=== PATIENT | male | born 1990 | race Caucasian/White ===

== ENCOUNTER 2018-06-29 13:06 | Emergency (ER) | payer OTHER ==
--- NOTE | 2018-06-29 13:08 | EDM.PDOC ---
ED HPI GENERAL MEDICAL PROBLEM - General Stated Complaint: COLD, HEADACHE AND BODYACHES Time Seen by Provider: 06/29/18 13:08 Source of Information: Reports: Patient History Limitations: Reports: No Limitations - History of Present Illness INITIAL COMMENTS - FREE TEXT/NARRATIVE: HISTORY AND PHYSICAL: History of present illness: Patient is a 27-year-old male who presents to the emergency room today with his significant other with concerns of coughing, fever, chills and generally feeling unwell. He states he has had the symptoms over the past 4 days which became worse last night. He states that his significant other woke him up as he was sweating. She felt his forehead and felt that he was warm to the touch. Denies any chest pain, shortness of breath, abdominal pain, nausea, vomiting, diarrhea or constipation. Patient denies any headache, change in vision, syncope or near syncope. No recent chemical exposures. Patient is a daily smoker. Review of systems: As per history of present illness and below otherwise all systems reviewed and negative. Past medical history: As per history of present illness and as reviewed below otherwise noncontributory. Surgical history: As per history of present illness and as reviewed below otherwise noncontributory. Social history: No reported history of drug or alcohol abuse. Family history: As per history of present illness and as reviewed below otherwise noncontributory. Physical exam: General: Developed and well-nourished 27-year-old male. Alert and oriented. Nontoxic appearing and in no acute distress. HEENT: Atraumatic, normocephalic, pupils equal and reactive bilaterally, negative for conjunctival pallor or scleral icterus, mucous membranes moist, throat clear, neck supple, nontender, trachea midline. No drooling or trismus noted. No meningeal signs Lungs: Diminished throughout, otherwise clear to auscultation, breath sounds equal bilaterally, chest nontender. Dry nonproductive cough noted. Heart: S1S2, regular rate and rhythm without overt murmur Abdomen: Soft, nondistended, nontender. Negative for masses or hepatosplenomegaly. Negative for costovertebral tenderness. Pelvis: Stable nontender. Genitourinary: Deferred. Rectal: Deferred. Skin: Intact, warm, dry. No lesions or rashes noted. Extremities: Atraumatic, negative for cords or calf pain. Neurovascular unremarkable. Neuro: Awake, alert, oriented. Cranial nerves II through XII unremarkable. Cerebellum unremarkable. Motor and sensory unremarkable throughout. Exam nonfocal. Notes: Lab work is unremarkable. Chest x-ray shows no evidence of pneumonia. Patient is a smoker. I did advise him to quit smoking. We'll give him Medrol Dosepak and Ventolin inhaler. Denies any further questions or concerns at this time. Diagnostics: CBC, BMP, CXR Therapeutics: None Prescription: Medrol Dose Francisco Ventolin PRN Impression: Viral Upper Respiratory Illness Plan: 1. Please stop smoking 2. To give medications as directed. Tylenol and/or ibuprofen as needed for pain and fever management. 3. Follow-up with your primary caregiver in the next 1-2 days. Return to the ED as needed and as discussed. Definitive disposition and diagnosis as appropriate pending reevaluation and review of above. - Related Data Allergies Allergy/AdvReac Type Severity Reaction Status Date / Time oxycodone [Oxycodone] Allergy Nausea and Verified 06/29/18 13:18 Vomiting Home Meds: Home Meds . [No Known Home Meds] 06/29/18 [History] Past Medical History - Past Health History Medical/Surgical History: Denies Medical/Surgical History ED ROS GENERAL - Review of Systems Review Of Systems: ROS reveals no pertinent complaints other than HPI. ED EXAM, GENERAL - Physical Exam Exam: See Below (See dictation) Course - Vital Signs Last Recorded V/S: Last Vital Signs Temp 97.3 F 06/29/18 13:19 Pulse 62 06/29/18 13:19 Resp 14 06/29/18 13:19 BP 118/63 06/29/18 13:19 Pulse Ox 97 06/29/18 13:19 - Orders/Labs/Meds Orders: Active Orders 24 hr Category Date Time Status BMP [BASIC METABOLIC PANEL,BMP] [CHEM] Stat Lab 06/29/18 13:32 Ordered Labs: Laboratory Tests 06/29/18 Range/Units 13:47 WBC 8.44 (4.0-11.0) K/uL RBC 4.87 (4.50-5.90) M/uL Hgb 15.5 (13.0-17.0) g/dL Hct 45.0 (38.0-50.0) % MCV 92.4 (80.0-98.0) fL MCH 31.8 (27.0-32.0) pg MCHC 34.4 (31.0-37.0) g/dL RDW Std Deviation 46.6 (28.0-62.0) fl RDW Coeff of Stephen 14 (11.0-15.0) % Plt Count 197 (150-400) K/uL MPV 9.50 (7.40-12.00) fL Neut % (Auto) 60.7 (48.0-80.0) % Lymph % (Auto) 27.1 (16.0-40.0) % Greenlee % (Auto) 9.4 (0.0-15.0) % Eos % (Auto) 2.4 (0.0-7.0) % Baso % (Auto) 0.4 (0.0-1.5) % Neut # (Auto) 5.1 (1.4-5.7) K/uL Lymph # (Auto) 2.3 (0.6-2.4) K/uL Greenlee # (Auto) 0.8 (0.0-0.8) K/uL Eos # (Auto) 0.2 (0.0-0.7) K/uL Baso # (Auto) 0.0 (0.0-0.1) K/uL Nucleated RBC % 0.0 /100WBC Nucleated RBCs # 0 K/uL Departure - Departure Time of Disposition: 14:12 Disposition: Home, Self-Care 01 Clinical Impression: Viral upper respiratory illness - Discharge Information Instructions: Viral Respiratory Infection, Owma-Ro-Noux Referrals: PCP,None [Primary Care Provider] - Additional Instructions: The following information is given to patients seen in the emergency department who are being discharged to home. This information is to outline your options for follow-up care. We provide all patients seen in our emergency department with a follow-up referral. The need for follow-up, as well as the timing and circumstances, are variable depending upon the specifics of your emergency department visit. If you don't have a primary care physician on staff, we will provide you with a referral. We always advise you to contact your personal physician following an emergency department visit to inform them of the circumstance of the visit and for follow-up with them and/or the need for any referrals to a consulting specialist. The emergency department will also refer you to a specialist when appropriate. This referral assures that you have the opportunity for follow-up care with a specialist. All of these measure are taken in an effort to provide you with optimal care, which includes your follow-up. Under all circumstances we always encourage you to contact your private physician who remains a resource for coordinating your care. When calling for follow-up care, please make the office aware that this follow-up is from your recent emergency room visit. If for any reason you are refused follow-up, please contact the [facility] Emergency Department at and asked to speak to the emergency department charge nurse. [facility] [address] [place] [id number] 1. Please stop smoking 2. To give medications as directed. Tylenol and/or ibuprofen as needed for pain and fever management. 3. Follow-up with your primary caregiver in the next 1-2 days. Return to the ED as needed and as discussed. - My Orders Last 24 Hours: My Active Orders 06/29/18 13:32 BMP [BASIC METABOLIC PANEL,BMP] [CHEM] Stat - Assessment/Plan Last 24 Hours: My Active Orders 06/29/18 13:32 BMP [BASIC METABOLIC PANEL,BMP] [CHEM] Stat
--- NOTE | 2018-06-29 14:10 | CR ---
EXAMINATION: Two-view chest (PA and Lateral views). HISTORY: Shortness of breath. FINDINGS: The trachea is midline. The cardiomediastinal silhouette is within normal limits. No pulmonary infilt rates, effusions or pneumothorax. Osseous structures appear unremarkable. IMPRESSION: No acute cardiopulmonary process.
[2018-06-29 14:18] LABS: CHLORIDE,CL 104 mmol/L (98-107); SODIUM,NA 140 mmol/L (136-148)
== END 2018-06-29 14:39 | disposition home or self-care (01) ==
LOC: MW.ED 13:06
DX: J06.9 Acute upper respiratory infection, unspecified (principal); Z88.6 Allergy status to analgesic agent; F17.210 Nicotine dependence, cigarettes, uncomplicated
CPT/HCPCS: 36415; 71046; 71046-26; 80048; 85025; 99283

== ENCOUNTER 2019-12-20 10:10 | Emergency (ER) | payer BC, OTHER ==
--- NOTE | 2019-12-20 10:37 | EDM.PDOC ---
ED HPI GENERAL MEDICAL PROBLEM - General Chief Complaint: Abdominal Pain Stated Complaint: BLOATING Time Seen by Provider: 12/20/19 10:11 Source of Information: Reports: Patient History Limitations: Reports: No Limitations - History of Present Illness INITIAL COMMENTS - FREE TEXT/NARRATIVE: HISTORY OF PRESENT ILLNESS: Patient is a 29-year-old male who presents with abdominal pain. States he had the pain initially on Monday which resolved for a few days and now returned since 11 PM last night. Pain is described as bloating diffuse maximal in the left upper quadrant. Denies any nausea or vomiting. No diarrhea or constipation. No melena or hematochezia. Denies any urinary symptoms. No history of sexually transmitted disease. Denies any chest pain or dyspnea. No fever neck stiffness or rash. Is 7 out of 10 in severity and now constant since last night. Denies prior abdominal surgeries. REVIEW OF SYSTEMS: Other than the symptoms associated with the present events, the following is reported with regard to recent health: General: (-) fever. HENT: (-) congestion. Respiratory: (-) cough. Cardiovascular: (-) chest pain. GI: (+) abdominal pain. : (-) urinary complaints. Musculoskeletal: (-) other aches or pains. Endocrine: (-) generalized weakness. Neurological: (-) localized weakness. Skin: (-) rash PAST MEDICAL HISTORY: reviewed as per nursing notes SOCIAL HISTORY: reviewed as per nursing notes, MEDICATIONS: Per nurse's note ALLERGIES: Per nurse's note, reviewed by me PHYSICAL EXAMINATION: GENERALIZED APPEARANCE: well developed, well nourished in mild distress VITAL SIGNS: Per nurse's note, reviewed by me SKIN: Warm, dry; (-) cyanosis; (-) rash. HEAD: (-) scalp swelling, (-) tenderness. EYES: (-) conjunctival pallor, (-) scleral icterus. ENMT: (-) stridor; mucous membranes moist. NECK: (-) tenderness, (-) stiffness, CHEST AND RESPIRATORY: (-) rales, (-) rhonchi, (-) wheezes; breath sounds equal bilaterally. HEART AND CARDIOVASCULAR: (-) irregularity; (-) murmur, (-) gallop. ABDOMEN AND GI: Soft; (+) diffuse mild tenderness, maximal in LUQ (-) guarding , (-) rebound, (-) palpable masses, EXTREMITIES: (-) deformity, (-) edema. NEURO AND PSYCH: Alert. Cranial nerves grossly intact; strength symmetric. gait steady DIAGNOSTICS: Labs ordered and reviewed CT abd/pelvis: as read by radiologist, report reviewed by myself EMERGENCY DEPARTMENT COURSE AND TREATMENT: Patient's condition remained stable during Emergency Department evaluation. Patient offered pain medication but refusing at this time. Labs reviewed. CT abdomen pelvis with possible ileus versus partial small bowel obstruction cannot exclude without p.o. contrast. Therefore decision made to order CT abdomen pelvis with p.o. contrast. I discussed this with the patient. He is already pulled out his IV and is refusing to stay longer states he needs to be at work in the next 20 minutes. The patient declines further evaluation and wishes to leave the Emergency Department. This action is against my medical advice to the patient and the decision was made with informed refusal. The patient was told that repeat CT and further evaluation is necessary and a full explanation of the rationale was given. The risks of leaving were explained to the patient and include, but are not limited to, worsening of known or currently unknown conditions, permanent disability and from undiagnosed or untreated conditions. The patient has the capacity to make this informed decision and understands the clinical situation and my explanation of the risks of leaving. The patient voluntarily accepts these risks and a signed AMA form documenting our conversation was obtained. The patient was given the opportunity to ask questions and reconsider. The patient was encouraged to return to the Emergency Department at any time for further care. PLAN AND FOLLOW-UP: left AMA. encouraged to return immediately for repeat testing and further evaluation or for any reason. f/u with pcp tomorrow. abd Pain Score (Numeric/FACES): 7 - Related Data Allergies Allergy/AdvReac Type Severity Reaction Status Date / Time oxycodone [Oxycodone] Allergy Nausea and Verified 06/29/18 13:18 Vomiting Home Meds: Home Meds . [No Known Home Meds] 06/29/18 [History] Past Medical History - Past Health History Medical/Surgical History: Denies Medical/Surgical History - Infectious Disease History Infectious Disease History: Reports: Chicken Pox - Past Surgical History Other HEENT Surgeries/Procedures: ear surgery as child Social & Family History - Family History Family Medical History: Noncontributory - Tobacco Use Smoking Status *Q: Current Every Day Smoker Years of Tobacco use: 10 Packs/Tins Daily: 1 - Caffeine Use Caffeine Use: Reports: Coffee - Recreational Drug Use Recreational Drug Use: No ED ROS GENERAL - Review of Systems Review Of Systems: See Below (see dictation) ED EXAM, GENERAL - Physical Exam Exam: See Below (see dictation) Course - Vital Signs Last Recorded V/S: Last Vital Signs Temp 97.7 F 12/20/19 10:22 Pulse 65 12/20/19 10:22 Resp 18 12/20/19 10:22 BP 123/74 12/20/19 10:22 Pulse Ox 99 12/20/19 10:22 - Orders/Labs/Meds Labs: Laboratory Tests 12/20/19 12/20/19 Range/Units 10:56 10:56 WBC 15.53 H (4.0-11.0) K/uL RBC 5.15 (4.50-5.90) M/uL Hgb 16.3 (13.0-17.0) g/dL Hct 48.2 (38.0-50.0) % MCV 93.6 (80.0-98.0) fL MCH 31.7 (27.0-32.0) pg MCHC 33.8 (31.0-37.0) g/dL RDW Std Deviation 46.6 (28.0-62.0) fl RDW Coeff of Stephen 14 (11.0-15.0) % Plt Count 253 (150-400) K/uL MPV 9.10 (7.40-12.00) fL Neut % (Auto) 73.3 (48.0-80.0) % Lymph % (Auto) 20.4 (16.0-40.0) % Crisp % (Auto) 4.8 (0.0-15.0) % Eos % (Auto) 1.4 (0.0-7.0) % Baso % (Auto) 0.1 (0.0-1.5) % Neut # (Auto) 11.4 H (1.4-5.7) K/uL Lymph # (Auto) 3.2 H (0.6-2.4) K/uL Crisp # (Auto) 0.8 (0.0-0.8) K/uL Eos # (Auto) 0.2 (0.0-0.7) K/uL Baso # (Auto) 0.0 (0.0-0.1) K/uL Nucleated RBC % 0.0 /100WBC Nucleated RBCs # 0 K/uL Sodium 142 (136-148) mmol/L Potassium 4.2 (3.5-5.1) mmol/L Chloride 104 (98-107) mmol/L Carbon Dioxide 31.3 (21.0-32.0) mmol/L BUN 12 (7.0-18.0) mg/dL Creatinine 0.9 (0.8-1.3) mg/dL Est Cr Clr Drug Dosing 128.99 mL/min Estimated GFR (MDRD) > 60.0 ml/min Glucose 94 (74-106) mg/dL Calcium 9.3 (8.5-10.1) mg/dL Total Bilirubin 0.3 (0.2-1.0) mg/dL AST 27 (15-37) IU/L ALT 65 H (14-63) IU/L Alkaline Phosphatase 81 (46-116) U/L Total Protein 7.6 (6.4-8.2) g/dL Albumin 4.1 (3.4-5.0) g/dL Globulin 3.5 (2.6-4.0) g/dL Albumin/Globulin Ratio 1.2 (0.9-1.6) Lipase 98 (73-393) U/L Meds: Medications Discontinued Medications Generic Name Dose Route Start Last Admin Trade Name Freq PRN Reason Stop Dose Admin Iopamidol 100 ml 12/20/19 12:03 12/20/19 12:05 Isovue Multipack-370 (76%) IVPUSH 12/20/19 12:04 100 ml ONETIME STA Administration Departure - Departure Time of Disposition: 12:56 Disposition: Against Medical Advice 07 Condition: Good Clinical Impression: Abdominal pain - Discharge Information *PRESCRIPTION DRUG MONITORING PROGRAM REVIEWED*: Not Applicable *COPY OF PRESCRIPTION DRUG MONITORING REPORT IN PATIENT JANENE: Not Applicable Instructions: Abdominal Pain, Adult, [id number] Referrals: PCP,None [Primary Care Provider] - Jamie Stewart [Ordering Only Provider] - Forms: Refusal of Care AMA Additional Instructions: The following information is given to patients seen in the emergency department who are being discharged to home. This information is to outline your options for follow-up care. We provide all patients seen in our emergency department with a follow-up referral. The need for follow-up, as well as the timing and circumstances, are variable depending upon the specifics of your emergency department visit. If you don't have a primary care physician on staff, we will provide you with a referral. We always advise you to contact your personal physician following an emergency department visit to inform them of the circumstance of the visit and for follow-up with them and/or the need for any referrals to a consulting specialist. The emergency department will also refer you to a specialist when appropriate. This referral assures that you have the opportunity for follow-up care with a specialist. All of these measure are taken in an effort to provide you with optimal care, which includes your follow-up. Under all circumstances we always encourage you to contact your private physician who remains a resource for coordinating your care. When calling for follow-up care, please make the office aware that this follow-up is from your recent emergency room visit. If for any reason you are refused follow-up, please contact the [facility] Emergency Department at and asked to speak to the emergency department charge nurse. Sepsis Event Note - Evaluation Sepsis Screening Result: No Definite Risk - Focused Exam Vital Signs: Vital Signs Temp Pulse Resp BP Pulse Ox 12/20/19 10:22 97.7 F 65 18 123/74 99 Date Exam was Performed: 12/20/19 Time Exam was Performed: 13:17
[2019-12-20 11:28] LABS: BLOOD UREA NITROGEN,BUN 12 mg/dL (7.0-18.0); CARBON DIOXIDE,CO2 31.3 mmol/L (21.0-32.0); CHLORIDE,CL 104 mmol/L (98-107); GLUCOSE RANDOM 94 mg/dL (74-106); LIPASE 98 U/L (73-393); POTASSIUM,K 4.2 mmol/L (3.5-5.1); SODIUM,NA 142 mmol/L (136-148)
[2019-12-20] MEDS ORDERED: Iopamidol 755 MG/ML 500 ML Multipack Bottle IVPUSH STA (12:03)
--- NOTE | 2019-12-20 12:47 | CT ---
CT abdomen and pelvis Technique: Multiple axial sections were obtained from above the dome of the diaphragm inferiorly through the pubic symphysis. Intravenous contrast was utilized. No oral contrast has been given. Findings: Slight atelectasis is noted within both lung bases. Liver contains no focal parenchymal abnormality. Gallbladder contains no calcified gallstones. Spleen appears within normal limits. Adrenal glands show no nodule. Pancreas is within normal limits for the patient's age. Aorta shows no aneurysm. No retroperitoneal adenopathy or mesenteric abnormalities are seen. Appendix is seen which is normal in size. No pelvic mass or adenopathy is seen. No free fluid or inflammatory change is seen within the abdomen or within the pelvis. Mildly prominent small bowel loops are seen. Without oral contrast uncertain if this simply represents ileus or could represent a partial small bowel obstruction. Bone window settings were reviewed which shows no acute osseous finding. Impression: 1. Slightly prominent loops of small bowel. Without contrast uncertain if this represents a mild small bowel ileus possibly from gastroenteritis or represents a partial small bowel obstruction. 2. No additional abnormality is appreciated on CT study of the abdomen and pelvis. Diagnostic code #3 This report was dictated in MDT
== END 2019-12-20 12:55 | disposition left against medical advice (07) ==
LOC: MW.ED 10:10
DX: R10.12 Left upper quadrant pain (principal); F17.210 Nicotine dependence, cigarettes, uncomplicated; Z88.5 Allergy status to narcotic agent
CPT/HCPCS: 36415; 74177; 80053; 83690; 85025; 99284; Q9967